=== PATIENT | female | born 1960 | race African-American/Black ===

== ENCOUNTER 2016-09-05 20:06 | Emergency (ER) | payer OTHER ==
[~2016-09-05] VITALS: Ht 160 cm; Wt 65.3 kg
--- NOTE | ~2016-09-05 | EKG ---
[place] [address] [address] [employer] [place] [address] ELECTROCARDIOGRAM REPORT Name: MIHAELA ROGERS Room #: DEP PERET Blandon#: [id number] Admission: 09/05/16 Attend Phys: Discharge: 09/05/16 Date of : 62 Report #: [id number] THIS REPORT FOR: //name// [facility] ED Test Date: 2016-09-05 Test Time: 20:10:43 Pat Name: MIHAELA ROGERS Department: Room: Gender: F [employer] Machine Operator: ALF : 1960 Requested By: Ethan Palacios Order Number: [id number] MD: Kelvin Srinivasan Measurements Intervals Wayne Rate: 86 P: 73 MD: 138 QRS: 55 QRSD: 82 T: 60 QT: 385 QTc: 461 Interpretive Statements Sinus rhythm Poor R wave progression No previous ECG available for comparison Electronically Signed On 09-06-2016 8:04:34 [employer]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
[2016-09-05] MEDS ORDERED: PROTONIX 20 MG20 M1 PO (20:23)
[2016-09-05] MEDS ORDERED: PHENERGAN 25 MG25 M1 PO (20:23)
[2016-09-05] MEDS ORDERED: COSOPT OCUMETER10 M1 OP (20:24)
[2016-09-05] MEDS ORDERED: SUMATRIPTAN10 GM MC (20:24)
[2016-09-05] MEDS ORDERED: HYDROCODONE-APA1 TA1 PO (20:24)
[2016-09-05] MEDS ORDERED: CELEXA10 MG PO (20:24)
[2016-09-05] MEDS ORDERED: TREXALL15 MG PO (20:25)
[2016-09-05] MEDS ORDERED: XALATAN2.5 ML OPHTHALMIC (20:25)
[2016-09-05 20:44] LABS: ABSOLUTE NEUTROPHILS 7.6 thou/uL (1.4-8.2); BASOPHILS 0.8 % (0.0-2.0); EOSINOPHILS 0.9 % (0.0-3.0); HEMATOCRIT 36.9 % (37.0-47.0); HEMOGLOBIN 11.8 gm/dL (12.0-15.0); LYMPHOCYTES 18.3 % (24.0-44.0); MANUAL DIFF NO; MCH 26.1 pg (26.0-34.0); MCHC 31.9 % (28.0-37.0); MCV 81.8 fL (80.0-100.0); MONOCYTES 3.5 % (1.0-8.0); PLATELET COUNT 444 thou/uL (150-400); POLYS 76.5 % (36.0-66.0); RBC 4.51 mil/uL (4.20-5.00); RDW 15.3 % (10.5-14.5); WBC 9.9 thou/uL (4.0-11.0)
[2016-09-05] MEDS ORDERED: NORCO 5-325 TA1 EACH PO (20:44)
[2016-09-05 20:53] LABS: ANION GAP 8 mmol/L (7-16); BUN 19 mg/dL (7-18); CALCIUM 9.1 mg/dL (8.5-10.1); CHLORIDE 103 mmol/L (98-107); CO2 27 mmol/L (21-32); GLUCOSE 106 mg/dL (70-99); POTASSIUM 4.3 mmol/L (3.5-5.1); SODIUM 138 mmol/L (136-145)
[2016-09-05 20:59] LABS: TROPONIN-I < 0.04 ng/mL (<0.04-0.07)
[2016-09-05 22:06] VITALS: BP 146/91
[2016-09-06] MEDS ORDERED: NORCO 5-325 TA1 EACH PO (13:43)
[2016-09-06] MEDS ORDERED: PHENERGAN 25 MG25 M1 PO (13:44)
[2016-09-06] MEDS ORDERED: AMLODIPINE BESYL5 MG PO (13:44)
== END 2016-09-05 22:08 | disposition home or self-care (01) ==
LOC: ER 20:06
PROVIDERS: Physician Assistant
DX: I10 Essential (primary) hypertension (principal); R07.89 Other chest pain; D86.9 Sarcoidosis, unspecified; F10.99 Alcohol use, unspecified with unspecified alcohol-induced disorder

== ENCOUNTER 2016-09-06 11:17 | Emergency (ER) | payer OTHER ==
[~2016-09-06] VITALS: Ht 160 cm; Wt 61.2 kg
[~2016-09-06 11:17] MED LIST: CELEXA10 MG PO; COSOPT OCUMETER10 M1 OP; HYDROCODONE-APA1 TA1 PO; NORCO 5-325 TA1 EACH PO; PHENERGAN 25 MG25 M1 PO; PROTONIX 20 MG20 M1 PO; SUMATRIPTAN10 GM MC; TREXALL15 MG PO; XALATAN2.5 ML OPHTHALMIC
[2016-09-06] MEDS ORDERED: NORCO 5-325 TA1 EACH PO (13:43)
[2016-09-06] MEDS ORDERED: AMLODIPINE BESYL5 MG PO (13:44)
[2016-09-06] MEDS ORDERED: PHENERGAN 25 MG25 M1 PO (13:44)
[2016-09-06 13:59] VITALS: BP 152/84
== END 2016-09-06 14:00 | disposition home or self-care (01) ==
LOC: ER 11:17
DX: G43.909 Migraine, unspecified, not intractable, without status migrainosus (principal); I16.0 Hypertensive urgency; D86.9 Sarcoidosis, unspecified